=== PATIENT | male | born 1945 | race Caucasian/White ===

== ENCOUNTER 2017-03-12 14:02 | Emergency (ER) | payer OTHER ==
[~2017-03-12 14:02] MED LIST: ANTIBIOTIC; AVELOX400 MG; FLAGYL500 MG; H
[2017-03-12] MEDS ORDERED: IBUPROFEN600 M1 PO (15:35)
[2017-03-12] MEDS ORDERED: NORCO 5-325 TA1 EACH PO (15:35)
[2017-03-12] MEDS ORDERED: CYCLOBENZAPRINE10 M1 PO (15:35)
== END 2017-03-12 15:53 ==
LOC: EDMED 14:02
DX: S13.4XXA Sprain of ligaments of cervical spine, initial encounter (principal); S23.3XXA Sprain of ligaments of thoracic spine, initial encounter; S33.5XXA Sprain of ligaments of lumbar spine, initial encounter; S40.012A Contusion of left shoulder, initial encounter; I10 Essential (primary) hypertension; Z85.46 Personal history of malignant neoplasm of prostate; Z87.891 Personal history of nicotine dependence; V49.40XA Driver injured in collision with unspecified motor vehicles in traffic accident, initial encounter; Y92.410 Unspecified street and highway as the place of occurrence of the external cause